=== PATIENT | female | born 1995 | race Asian ===

== ENCOUNTER 2022-03-24 16:40 | Emergency (ER) | payer BC ==
[~2022-03-24] VITALS: Ht 157.5 cm; Wt 66.0 kg
[2022-03-24 16:49] VITALS: BP 112/73
[2022-03-24] MEDS ORDERED: LIDOCAINE HCL/PF 1% 10 MG/ML 5ML VIAL INFIL ONE (18:15)
[2022-03-24] MEDS ORDERED: TETANUS, DIPHTHERIA, PERTUSSIS VAC/PF 0.5ML (>10YR OLD) IM ONE (18:15)
== END 2022-03-24 19:07 | disposition home or self-care (01) ==
LOC: ER 17:02
DX: S61.011A Laceration without foreign body of right thumb without damage to nail, initial encounter (principal); W25.XXXA Contact with sharp glass, initial encounter; Y93.89 Activity, other specified; Y92.018 Other place in single-family (private) house as the place of occurrence of the external cause
CPT/HCPCS: 12002; 90471; 90715; 99283; J3490